=== PATIENT | male | born 1950 | race Caucasian/White ===

== ENCOUNTER 2021-01-03 20:32 | Emergency (ER) | payer MEDICARE ==
[2021-01-03] MEDS ORDERED: LEVOPHED 4 MG/4 ML 4,000 MCG in Dextrose 5%/Water IV Soln. 500 ML 500 ML IV ONE (20:33)
[2021-01-03] MEDS ORDERED: Zemuron 100 MG/10 ML IV ONE (20:33)
--- NOTE | 2021-01-03 20:42 | ERPHSYRPT ---
- History of Present Illness Time Seen by Provider: 01/03/21 20:42 Source: EMS Exam Limitations: clinical condition Physician History: Is a 70-year-old gentleman who has a history of hypertension, coronary artery bypass grafting coronary artery disease on Coumadin, hypertension and has been treated for multiple myeloma by Dr. Menendez at [facility] in [facility]. Today, just prior to arrival to the emergency department, patient stood up and fell and hit his head. He had a change in his mental status. He was agitated upon arrival of EMS and during transport here to the emergency department. Per son's report, the patient's most recent INR was over 4.0. The dosage was dropped in half from 2 mg to 1 mg. Patient arrives somewhat combative and agitated. He has low oxygen level. Occurred: just prior to arrival Severity: severe Method of Injury: fell Loss of Consciousness: other (Altered mental status and agitated) Associated Symptoms: denies symptoms Allergies/Adverse Reactions: No Known Drug Allergies Allergy (Verified 09/10/12 08:19) Home Medications: Aspirin [Aspir 81] 81 mg PO AC 09/09/12 [History] Metoprolol Tartrate 50 mg [Lopressor 50 MG] 50 mg PO BID 09/09/12 [History] Rosuvastatin Calcium [Crestor] 20 mg PO DAILY 09/09/12 [History] lisinopriL [Prinivil] 20 mg PO QAM 09/09/12 [History] Hydrocodone Bit/Acetaminophen [Hydrocodon-Acetaminoph 7.5-500] Q6H PRN PRN 09/10/12 [History] Travel Risk - International Travel Have you traveled outside of the country in past 3 weeks: No - Coronavirus Screening Are you exhibiting any of the following symptoms?: No Close contact with a COVID-19 positive Pt in past 14-21 Days: No - Review of Systems Constitutional: Other (Agitated altered mental status) Eyes: Other (Unable to assess) Ears, Nose, & Throat: No Symptoms, Other (Unable to assess) Respiratory: No Symptoms, Other (Unable to assess) Cardiac: Other (Able to assess) Abdominal/Gastrointestinal: Other (To assess) Genitourinary Symptoms: Other (Unable to assess) Musculoskeletal: Other (Unable to assess) Skin: Other Neurological: Other (Unable to assess) Psychological: Other (We will to assess) Endocrine: Other (Unable to assess) Hematologic/Lymphatic: Other (Multiple myeloma) Immunological/Allergic: No Symptoms All Other Systems: Reviewed and Negative - Past Medical History Neurological History: Migraines ENT History: No Pertinent History Cardiac History: High Cholesterol, Hypertension, Other Respiratory History: Other Endocrine Medical History: No Pertinent History Musculoskeletal History: Osteoarthritis GI Medical History: No Pertinent History History: No Pertinent History Psycho-Social History: No Pertinent History Male Reproductive Disorders: No Pertinent History Other Medical History: CABG x4 08/22/17, SOB since open heart - Past Surgical History Past Surgical History: Yes Neuro Surgical History: No Pertinent History Cardiac: Cardiac Catheterization Respiratory: No Pertinent History Gastrointestinal: Appendectomy, Cholecystectomy Genitourinary: No Pertinent History Musculoskeletal: No Pertinent History Male Surgical History: No Pertinent History - Social History Smoking Status: Former smoker Exposure to second hand smoke: Yes Drug Use: none - Nursing Vital Signs Nursing Vital Signs: Initial Vital Signs Pulse Rate 101 H 01/03/21 20:35 Respiratory Rate 12 01/03/21 20:35 Blood Pressure 40/0 01/03/21 20:35 O2 Sat by Pulse Oximetry 82 L 01/03/21 20:35 Pain Scale Pain Intensity 0 - [place] Coma Score Best Verbal Response ([place]): (1) no verbal response Best Motor Response (Sammi): (4) withdraws to pain - Physical Exam General Appearance: severe distress, other (3rd mental status agitated) Head Injury: no evidence of injury Eye Exam: bilateral eye: other (Right pupil appears slightly larger than the lef t side. The left side appears more constricted and the right side appears more normal in size) ENT Exam: other (Ko[place] dry), No hemotympanum Neck Exam: supple, trachea midline, full range of motion, normal alignment, normal inspection Cardiovascular/Respiratory Exam: rhonchi (Bilaterally), No paradoxical movements, No accessory muscle use Gastrointestinal/Abdominal Exam: soft, non tender, no distention, no mass, no guarding, no ecchymosis, no organomegaly Rectal Exam: not done Back Exam: normal inspection, No vertebral tenderness Extremity Exam: normal range of motion Mental Status Exam: other (Agitated and altered mental status patient does not follow commands) 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 Care 01/03/21 20:43 Active EKG-ER Only STAT Care 01/03/21 20:42 Active Juárez [Catheter-Wilson Juárez] STAT Care 01/03/21 20:44 Active IV Insertion STAT Care 01/03/21 20:42 Active IV Insertion-2nd Peripheral STAT Care 01/03/21 21:04 Active Pulse Oximetry (ED) STAT Care 01/03/21 20:42 Active CERVICAL SPINE WO CONTRAST [CT] Stat Exams 01/03/21 20:44 Taken CHEST 1 VIEW (PORTABLE) Stat Exams 01/03/21 21:00 Taken HEAD WITHOUT CONTRAST [CT] Stat Exams 01/03/21 20:43 Taken ABG [ARTERIAL BLOOD GASES] Urgent Lab 01/03/21 21:06 Completed ABG [ARTERIAL BLOOD GASES] Urgent Lab 01/03/21 22:18 Completed CBC W DIFF Stat Lab 01/03/21 20:45 Completed CMP Stat Lab 01/03/21 20:45 Completed CULTURE,URINE Stat Lab 01/03/21 21:34 Received D-DIMER QUANTITATIVE Stat Lab 01/03/21 20:45 Completed Lactic Acid Urgent Lab 01/03/21 21:06 Completed Lactic Acid Urgent Lab 01/03/21 22:18 Completed Manual Differential NC Stat Lab 01/03/21 20:45 Completed NT PRO BNP Stat Lab 01/03/21 20:45 Completed PROTIME WITH INR Stat Lab 01/03/21 20:45 Completed TROPONIN Q3H Lab 01/03/21 20:45 Completed TROPONIN Q3H Lab 01/03/21 23:45 Ordered TROPONIN Q3H Lab 01/04/21 02:45 Ordered TROPONIN Q3H Lab 01/04/21 05:45 Ordered TROPONIN Q3H Lab 01/04/21 08:45 Ordered UA W/RFX UR CULTURE Stat Lab 01/03/21 21:34 Completed Urine Triage Profile Stat Lab 01/03/21 21:02 Completed Intubate Patient STAT RT 01/03/21 21:27 Active Intubation [Ventilator Management] STAT RT 01/03/21 21:27 Active Medication Summary Generic Name Dose Route Start Last Admin Trade Name Julisa PRN Reason Stop Dose Admin Vancomycin HCl 1 gm in 200 mls @ 125 mls/hr 01/03/21 23:13 Vancomycin 1 Gram/200 Ml Bag IV 01/04/21 00:48 STAT ONE Discontinued Medications Generic Name Dose Route Start Last Admin Trade Name Julisa PRN Reason Stop Dose Admin Sodium Chloride Confirm 01/03/21 21:10 Sodium Chloride 0.9% 1000 Ml Administered 01/03/21 21:11 Dose 1,000 mls @ ud .ROUTE .STK-MED ONE Meropenem 1 g/ Sodium Chloride 100 mls @ 200 mls/hr 01/03/21 21:42 01/03/21 22:01 IV 01/03/21 22:11 200 mls/hr STAT ONE Administration Sodium Chloride Confirm 01/03/21 21:57 Sodium Chloride 100ml Mini-Bag Plus Administered 01/03/21 21:58 Dose 100 mls @ ud IV .STK-MED ONE Sodium Chloride Confirm 01/03/21 21:57 Sodium Chloride 0.9% 1000 Ml Administered 01/03/21 21:58 Dose 1,000 mls @ ud .ROUTE .STK-MED ONE Sodium Chloride Confirm 01/03/21 22:22 Sodium Chloride 0.9% 250 Ml Administered 01/03/21 22:23 Dose 250 mls @ ud IV .STK-MED ONE Sodium Chloride Confirm 01/03/21 23:03 Sodium Chloride 0.9% 1000 Ml Administered 01/03/21 23:04 Dose 1,000 mls @ ud .ROUTE .STK-MED ONE Meropenem Confirm 01/03/21 21:57 Merrem 1 Gm Administered 01/03/21 21:58 Dose 1 g IV .STK-MED ONE Midazolam HCl Confirm 01/03/21 22:22 Versed 50 Mg/ 10 Ml Mdv Administered 01/03/21 22:23 Dose 50 mg .ROUTE .STK-MED ONE Phytonadione 10 mg 01/03/21 21:40 01/03/21 22:01 Vitamin K 10 Mg/Ml IM 01/03/21 21:41 10 mg STAT ONE Administration Phytonadione Confirm 01/03/21 21:57 Vitamin K 10 Mg/Ml Administered 01/03/21 21:58 Dose 10 mg .ROUTE .STK-MED ONE Lab/Rad Data: Laboratory Result Diagrams 01/03/21 20:45 01/03/21 20:45 Laboratory Results 01/03/21 01/03/21 01/03/21 Range/Units 22:18 22:10 21:34 WBC (4.0-10.5) K/mm3 RBC (4.1-5.6) M/mm3 Hgb (12.5-18.0) gm/dl Hct (42-50) % MCV (78-100) fl MCH (26-32) pg MCHC (32-36) g/dl RDW (11.5-14.0) % Plt Count (150-450) K/mm3 MPV (7.5-11.0) fl Segmented Neutrophils (36.-66.) % Band Neutrophils (0.0-2.0) % Lymphocytes (Manual) (24-44) % Hypochromia Platelet Estimate (NORMAL) RBC Morphology Poikilocytosis Anisocytosis Scobey Cells PT (8.83-12.87) SECONDS INR (0.8-3.0) D-Dimer (215-500) ng/mL Puncture Site fem pCO2 25 L (35-45) mmHg pO2 193 H* (75-100) mmHg Base Excess -7.1 L (-2.0-2.0) O2 Saturation 97.6 (94-100) g/dF ABG pH 7.41 (7.35-7.45) ABG HCO3 15.8 L* (22-28) ABG O2 Sat (Measured) 99.5 (95-100) % Kwaku Test na A-a Gradient 489 a/A Ratio 0.28 Hemoglobin 7.7 L* Carboxyhemoglobin 0.6 (0.0-6.9) % THgb Methemoglobin 1.2 L (1.4-1.5) % Temperature 37.0 C POC O2 Flow Rate 100 % Vent Mode A/C Tidal Volume 600 cc PEEP 5.0 cmH2O Sodium (137-145) mmol/L Potassium 2.4 L* (3.5-5.1) mmol/L Chloride (98-107) mmol/L Carbon Dioxide (22-30) mmol/L Anion Gap (5-15) MEQ/L BUN (9-20) mg/dL Creatinine (0.66-1.25) mg/dL Estimated GFR ML/MIN Glucose (74-106) mg/dL Lactic Acid 5.2 H (0.4-2.0) Calcium (8.4-10.2) mg/dL Total Bilirubin (0.2-1.3) mg/dL AST (17-59) U/L ALT (0-50) U/L Alkaline Phosphatase (38-126) U/L Troponin I (0.000-0.034) ng/mL NT-Pro-B Natriuret Pep (0-900) pg/mL Serum Total Protein (6.3-8.2) g/dL Albumin (3.5-5.0) g/dL Urine Color MESSI (YELLOW) Urine Appearance CLOUDY (CLEAR) Urine pH 5.0 (5-6) Ur Specific Seale 1.020 (1.005-1.025) Urine Protein 100 (Negative) Urine Ketones NEGATIVE (NEGATIVE) Urine Blood SMALL (0-5) Bipin/ul Urine Nitrite NEGATIVE (NEGATIVE) Urine Bilirubin SMALL (NEGATIVE) Urine Urobilinogen 4 (0-1) mg/dL Ur Leukocyte Esterase MODERATE (NEGATIVE) Urine WBC (Auto) >100 (0-5) /HPF Urine RBC (Auto) 6-10 (0-2) /HPF U Hyaline Cast (Auto) 3-5 (0-2) /LPF U Epithel Cells (Auto) NONE (FEW) /HPF Urine Bacteria (Auto) MODERATE (NEGATIVE) /HPF Urine Mucus (Auto) SLIGHT (NEGATIVE) /HPF Urine Culture Reflexed ORDERED SEPARATELY (NO) Urine Glucose NEGATIVE (NEGATIVE) mg/dL Urine Opiates Level (NEGATIVE) Ur Methadone (NEGATIVE) Urine Barbiturates (NEGATIVE) Ur Phencyclidine (PCP) (NEGATIVE) Urine Amphetamine (NEGATIVE) U Benzodiazepine Level (NEGATIVE) Urine Cocaine (NEGATIVE) Urine Marijuana (THC) (NEGATIVE) ABO Group A Rh Factor POSITIVE Antibody Screen POSITIVE (NEGATIVE) Crossmatch Pending 01/03/21 01/03/21 01/03/21 Range/Units 21:06 21:02 20:45 WBC (4.0-10.5) K/mm3 RBC (4.1-5.6) M/mm3 Hgb (12.5-18.0) gm/dl Hct (42-50) % MCV (78-100) fl MCH (26-32) pg MCHC (32-36) g/dl RDW (11.5-14.0) % Plt Count (150-450) K/mm3 MPV (7.5-11.0) fl Segmented Neutrophils (36.-66.) % Band Neutrophils (0.0-2.0) % Lymphocytes (Manual) (24-44) % Hypochromia Platelet Estimate (NORMAL) RBC Morphology Poikilocytosis Anisocytosis Art Cells PT (8.83-12.87) SECONDS INR (0.8-3.0) D-Dimer (215-500) ng/mL Puncture Site fem pCO2 36 (35-45) mmHg pO2 117 H (75-100) mmHg Base Excess -14.1 L (-2.0-2.0) O2 Saturation 97.0 (94-100) g/dF ABG pH 7.18 L* (7.35-7.45) ABG HCO3 13.4 L* (22-28) ABG O2 Sat (Measured) 98.8 (95-100) % Kwaku Test na A-a Gradient 551 a/A Ratio 0.18 Hemoglobin 7.1 L* Carboxyhemoglobin 0.9 (0.0-6.9) % THgb Methemoglobin 0.9 L (1.4-1.5) % Temperature 37.0 C POC O2 Flow Rate 100 % Vent Mode A/C Tidal Volume 600 cc PEEP 5.0 cmH2O Sodium (137-145) mmol/L Potassium 2.4 L* (3.5-5.1) mmol/L Chloride (98-107) mmol/L Carbon Dioxide (22-30) mmol/L Anion Gap (5-15) MEQ/L BUN (9-20) mg/dL Creatinine (0.66-1.25) mg/dL Estimated GFR ML/MIN Glucose (74-106) mg/dL Lactic Acid 10.1 H (0.4-2.0) Calcium (8.4-10.2) mg/dL Total Bilirubin (0.2-1.3) mg/dL AST (17-59) U/L ALT (0-50) U/L Alkaline Phosphatase (38-126) U/L Troponin I 0.038 H* (0.000-0.034) ng/mL NT-Pro-B Natriuret Pep (0-900) pg/mL Serum Total Protein (6.3-8.2) g/dL Albumin (3.5-5.0) g/dL Urine Color (YELLOW) Urine Appearance (CLEAR) Urine pH (5-6) Ur Specific Seale (1.005-1.025) Urine Protein (Negative) Urine Ketones (NEGATIVE) Urine Blood (0-5) Bipin/ul Urine Nitrite (NEGATIVE) Urine Bilirubin (NEGATIVE) Urine Urobilinogen (0-1) mg/dL Ur Leukocyte Esterase (NEGATIVE) Urine WBC (Auto) (0-5) /HPF Urine RBC (Auto) (0-2) /HPF U Hyaline Cast (Auto) (0-2) /LPF U Epithel Cells (Auto) (FEW) /HPF Urine Bacteria (Auto) (NEGATIVE) /HPF Urine Mucus (Auto) (NEGATIVE) /HPF Urine Culture Reflexed (NO) Urine Glucose (NEGATIVE) mg/dL Urine Opiates Level NEGATIVE (NEGATIVE) Ur Methadone NEGATIVE (NEGATIVE) Urine Barbiturates NEGATIVE (NEGATIVE) Ur Phencyclidine (PCP) NEGATIVE (NEGATIVE) Urine Amphetamine NEGATIVE (NEGATIVE) U Benzodiazepine Level NEGATIVE (NEGATIVE) Urine Cocaine NEGATIVE (NEGATIVE) Urine Marijuana (THC) NEGATIVE (NEGATIVE) ABO Group Rh Factor Antibody Screen (NEGATIVE) Crossmatch 01/03/21 01/03/21 01/03/21 Range/Units 20:45 20:45 20:45 WBC 16.1 H (4.0-10.5) K/mm3 RBC 2.66 L (4.1-5.6) M/mm3 Hgb 7.5 L (12.5-18.0) gm/dl Hct 25.8 L (42-50) % MCV 97.0 (78-100) fl MCH 28.2 (26-32) pg MCHC 29.1 L (32-36) g/dl RDW 18.2 H (11.5-14.0) % Plt Count 466 H (150-450) K/mm3 MPV 9.2 (7.5-11.0) fl Segmented Neutrophils 94 H (36.-66.) % Band Neutrophils 1 (0.0-2.0) % Lymphocytes (Manual) 5 L (24-44) % Hypochromia 1+ Platelet Estimate NORMAL (NORMAL) RBC Morphology ABNORMAL Poikilocytosis 1+ Anisocytosis 1+ Scobey Cells 1+ PT 65.1 H (8.83-12.87) SECONDS INR 5.75 H* (0.8-3.0) D-Dimer 3149 H* (215-500) ng/mL Puncture Site pCO2 (35-45) mmHg pO2 (75-100) mmHg Base Excess (-2.0-2.0) O2 Saturation (94-100) g/dF ABG pH (7.35-7.45) ABG HCO3 (22-28) ABG O2 Sat (Measured) (95-100) % Kwaku Test A-a Gradient a/A Ratio Hemoglobin Carboxyhemoglobin (0.0-6.9) % THgb Methemoglobin (1.4-1.5) % Temperature C POC O2 Flow Rate % Vent Mode Tidal Volume cc PEEP cmH2O Sodium 134 L (137-145) mmol/L Potassium 3.4 L (3.5-5.1) mmol/L Chloride 100 (98-107) mmol/L Carbon Dioxide 10 L* (22-30) mmol/L Anion Gap 28.0 H (5-15) MEQ/L BUN 20 (9-20) mg/dL Creatinine 1.31 H (0.66-1.25) mg/dL Estimated GFR 57.8 ML/MIN Glucose 315 H (74-106) mg/dL Lactic Acid (0.4-2.0) Calcium 6.6 L (8.4-10.2) mg/dL Total Bilirubin 0.90 (0.2-1.3) mg/dL AST 27 (17-59) U/L ALT 23 (0-50) U/L Alkaline Phosphatase 166 H (38-126) U/L Troponin I (0.000-0.034) ng/mL NT-Pro-B Natriuret Pep 1330 H (0-900) pg/mL Serum Total Protein 4.3 L (6.3-8.2) g/dL Albumin 2.4 L (3.5-5.0) g/dL Urine Color (YELLOW) Urine Appearance (CLEAR) Urine pH (5-6) Ur Specific Seale (1.005-1.025) Urine Protein (Negative) Urine Ketones (NEGATIVE) Urine Blood (0-5) Bipin/ul Urine Nitrite (NEGATIVE) Urine Bilirubin (NEGATIVE) Urine Urobilinogen (0-1) mg/dL Ur Leukocyte Esterase (NEGATIVE) Urine WBC (Auto) (0-5) /HPF Urine RBC (Auto) (0-2) /HPF U Hyaline Cast (Auto) (0-2) /LPF U Epithel Cells (Auto) (FEW) /HPF Urine Bacteria (Auto) (NEGATIVE) /HPF Urine Mucus (Auto) (NEGATIVE) /HPF Urine Culture Reflexed (NO) Urine Glucose (NEGATIVE) mg/dL Urine Opiates Level (NEGATIVE) Ur Methadone (NEGATIVE) Urine Barbiturates (NEGATIVE) Ur Phencyclidine (PCP) (NEGATIVE) Urine Amphetamine (NEGATIVE) U Benzodiazepine Level (NEGATIVE) Urine Cocaine (NEGATIVE) Urine Marijuana (THC) (NEGATIVE) ABO Group Rh Factor Antibody Screen (NEGATIVE) Crossmatch - Progress Progress: improved, re-examined Progress Note: 01/03/21 23:16 Chest x-ray post orotracheal intubation shows the ET tube within the trachea above the tha. There is left lung fluid present. No definite infiltrate present. CAT scan of the head shows no acute intracranial hemorrhage. Medical decision making: This patient appears to be septic. The likely source is urine. Patient is hypoxic, hypotensive and septic. I spoke with Dr. Stevens, the hospitalist at [facility]. I reviewed the patient history, condition, work-up results with him. Dr. Stevens wanted me to add vancomycin 1 g intravenous. I informed Dr. Stevens that the patient is on a Levophed drip, Versed drip and has received 3 L of normal saline and is on the fourth liter of normal saline at this time. Dr. Stevens accepts the patient in transfer. - Departure Departure Disposition: Transfer Clinical Impression: Altered mental status, Elevated INR, Hypoxia, Leukocytosis, Hypotension, Elevated troponin, Elevated d-dimer, Sepsis Condition: Critical Critical Care Time: Yes Critical Care Time(excluding separately billable procedures): Critical 75-104 mins Referrals: JUAN LUIS GRIMES MD [Primary Care Provider] -
[2021-01-03 20:52] LABS: Hematocrit 25.8 % (42-50); Hemoglobin 7.5 gm/dl (12.5-18.0); Mean Corpuscular Hemoglobin 28.2 pg (26-32); Mean Corpuscular Hgb Concent. 29.1 g/dl (32-36); Mean Platelet Volume 9.2 fl (7.5-11.0); Platelet Count 466 K/mm3 (150-450); Red Blood Count 2.66 M/mm3 (4.1-5.6); Red Cell Distribution Width 18.2 % (11.5-14.0); White Blood Count 16.1 K/mm3 (4.0-10.5)
[2021-01-03 21:05] LABS: BAND 1 % (0.0-2.0); Lymphocytes 5 % (24-44); Neutrophils 94 % (36.-66.); Total Cells Counted 100
[2021-01-03 21:07] LABS: ALBUMIN 2.4 g/dL (3.5-5.0); BILIRUBIN,TOTAL 0.9 mg/dL (0.2-1.3); Calcium 6.6 mg/dL (8.4-10.2); Creatinine 1 1.31 mg/dL (0.66-1.25); EST GLOMERULAR FILTRATION RATE 57.8 ML/MIN; Potassium 3.4 mmol/L (3.5-5.1); Total Protein 4.3 g/dL (6.3-8.2)
[2021-01-03] MEDS ORDERED: Sodium Chloride 0.9% 1000 ML 1,000 ML ONE ×3 (21:10→23:03)
[2021-01-03 21:23] LABS: ANISOCYTOSIS 1+; Hypochromia 1+; Poikilocytosis 1+
[2021-01-03 21:24] LABS: Platelet Estimate NORMAL (NORMAL)
[2021-01-03 21:24] LABS: A-aADO2 551; ARTERIAL BLD GAS O2 SATURATION 98.8 % (95-100); ARTERIAL BLD GAS TIDAL VOLUME 600 cc; ARTERIAL BLOOD GAS BASE EXCESS -14.1 (-2.0-2.0); ARTERIAL BLOOD GAS FIO2 100 %; ARTERIAL BLOOD GAS PCO2 36 mmHg (35-45); ARTERIAL BLOOD GAS PO2 117 mmHg (75-100); ARTERIAL BLOOD GAS VENT MODE A/C; ARTERIAL BLOOD GAS pH 7.18 (7.35-7.45); CARBOXYHEMOGLOBIN 0.9 % THgb (0.0-6.9); HCO3- 13.4 (22-28); Lactic Acid 10.1 (0.4-2.0); Methhemoglobin 0.9 % (1.4-1.5)
[2021-01-03 21:25] LABS: Burr Cells 1+
[2021-01-03 21:25] LABS: ABG HEMOGLOBIN 7.1; ABG POTASSIUM 2.4 (3.5-5.1)
[2021-01-03 21:31] LABS: PROTIME 65.1 SECONDS (8.83-12.87)
[2021-01-03] MEDS ORDERED: Vitamin K 10 MG/ML IM ONE (21:40)
[2021-01-03 21:41] LABS: INR 5.75 (0.8-3.0)
[2021-01-03] MEDS ORDERED: Merrem 1 GM 1 G in Sodium Chloride 100ML MINI-BAG PLUS 100 ML IV ONE (21:42)
[2021-01-03 21:49] LABS: Appearance CLOUDY (CLEAR); Bacteria MODERATE /HPF (NEGATIVE); Bilirubin SMALL (NEGATIVE); Blood SMALL Ery/ul (0-5); Glucose NEGATIVE (NEGATIVE); Ketones NEGATIVE (NEGATIVE); Leukocyte Esterase MODERATE (NEGATIVE); Mucus SLIGHT /HPF (NEGATIVE); Nitrite NEGATIVE (NEGATIVE); Protein,Urine Dip 100 (Negative); Urobilinogen 4 mg/dL (0-1); WBC >100 /HPF (0-5)
[2021-01-03 21:55] LABS: Amphetamine,Urine NEGATIVE (NEGATIVE); Barbiturate,Urine NEGATIVE (NEGATIVE); Benzodiazepine,Urine NEGATIVE (NEGATIVE); Cocaine,Urine NEGATIVE (NEGATIVE); Methadone,Urine NEGATIVE (NEGATIVE); Opiate,Urine NEGATIVE (NEGATIVE); THC,Urine NEGATIVE (NEGATIVE)
[2021-01-03] MEDS ORDERED: Vitamin K 10 MG/ML ONE (21:57)
[2021-01-03] MEDS ORDERED: Merrem 1 GM IV ONE (21:57)
[2021-01-03] MEDS ORDERED: Sodium Chloride 100ML MINI-BAG PLUS 100 ML IV ONE (21:57)
[2021-01-03 22:03] LABS: PCP,Urine NEGATIVE (NEGATIVE)
[2021-01-03 22:19] LABS: A-aADO2 489; ARTERIAL BLD GAS O2 SATURATION 99.5 % (95-100); ARTERIAL BLD GAS TIDAL VOLUME 600 cc; ARTERIAL BLOOD GAS BASE EXCESS -7.1 (-2.0-2.0); ARTERIAL BLOOD GAS FIO2 100 %; ARTERIAL BLOOD GAS PCO2 25 mmHg (35-45); ARTERIAL BLOOD GAS PO2 193 mmHg (75-100); ARTERIAL BLOOD GAS VENT MODE A/C; ARTERIAL BLOOD GAS pH 7.41 (7.35-7.45); CARBOXYHEMOGLOBIN 0.6 % THgb (0.0-6.9); HCO3- 15.8 (22-28); HGB O2 SAT 97.6 g/dF (94-100); Lactic Acid 5.2 (0.4-2.0); Methhemoglobin 1.2 % (1.4-1.5)
[2021-01-03 22:20] LABS: ABG HEMOGLOBIN 7.7; ABG POTASSIUM 2.4 (3.5-5.1)
[2021-01-03] MEDS ORDERED: Sodium Chloride 0.9% 250 ML 250 ML IV ONE (22:22)
[2021-01-03] MEDS ORDERED: Versed 50 MG/ 10 Ml MDV ONE (22:22)
[2021-01-03 23:03] VITALS: O2SAT 99
[2021-01-03 23:09] LABS: ABO TYPING A; RH TYPING POSITIVE
[2021-01-03] MEDS ORDERED: VANCOMYCIN 1 GRAM/200 ML BAG 1 GM/200 ML PIGGYBACK IV ONE ×2 (23:13→23:16)
[2021-01-03 23:55] LABS: Antibody Screen POSITIVE (NEGATIVE)
[2021-01-04 00:01] VITALS: BP 88/58; PULSE 76
--- NOTE | 2021-01-04 08:48 | XRAY ---
Indication: Head injury with loss of consciousness. Acute mental status change. Coumadin therapy. Multiple contiguous axial images obtained through the head without contrast. Comparison: None Age-appropriate global atrophy. No acute intracranial hemorrhage, abnormal extra-axial fluid collection, or mass effect. Fourth ventricle is midline without hydrocephalus. Sanchez-white matter differentiation preserved. Bony calvarium intact with multiple tiny lytic lesions. Visualized paranasal sinuses and mastoid air cells are clear. Impression: 1. No acute intracranial abnormalities. 2. Multiple tiny bony calvarium lytic lesions. Rule out osteoporosis, multiple myeloma, or metastasis.
--- NOTE | 2021-01-04 08:52 | XRAY ---
Indication: Head injury with loss of consciousness. Acute mental status change. Coumadin therapy. Multiple contiguous axial images obtained through the cervical spine. Sagittal and coronal reformatted images obtained. Comparison: None Osseous structures are demineralized. Visualized cervical thoracic segments, clavicles, and scapula demonstrates numerous tiny lytic lesions either osteoporosis versus multiple myeloma versus osteolytic metastasis. Axial images negative for acute fracture or spinal canal stenosis. There is mild C3-C4 degenerative endplate spurring and mild multilevel bilateral generative facet hypertrophy. Sagittal and coronal reformatted images demonstrates normal alignment with C3-C4 disc space loss. Superior endplate of T1 demonstrate mild concave deformity favoring endplate fracture of uncertain chronicity. No other compression fracture, subluxation, or jumped facet. Normal appearing craniocervical junction. Visualized noncontrasted soft tissues demonstrates moderate bilateral carotid calcifications. Endotracheal tube in situ with the tip not included in the [id number]. Lung apices demonstrates consolidating opacities versus effusion left greater than right. Impression: 1. T1 superior endplate fracture of uncertain chronicity. 2. Multiple bony lytic lesions. Rule out osteoporosis, multiple myeloma, or metastasis. 3. Mild multilevel degenerative changes. 4. Incidental right apical consolidating opacities versus effusions.
--- NOTE | 2021-01-04 09:00 | XRAY ---
Indication: Tube placement. Comparison: August 27, 2012. Portable chest underinflated with new endotracheal tube tip 3 cm above the tha. New cardiomegaly with CABG surgery and new moderate left effusion. Right costophrenic angle not included in the [id number]. Bony thorax demonstrates osteopenia and new left lateral 6-8 rib fractures. 6th rib fracture is mildly displaced/angulated. Impression: 1. Endotracheal tube tip in good position. 2. New left 6-8 with fractures with hemothorax. 3. New cardiomegaly with CABG surgery. Comment: Rib fractures not reported by interpreting ER clinician. Telephone report was given to Dr. Groves in the ER at 0855 hours on January 04, 2021.
== END 2021-01-04 00:02 | disposition short-term general hospital (02) ==
LOC: ED 20:32
DX: R41.82 Altered mental status, unspecified (principal); R79.1 Abnormal coagulation profile; R09.02 Hypoxemia; D72.829 Elevated white blood cell count, unspecified; I95.9 Hypotension, unspecified; R77.8 Other specified abnormalities of plasma proteins; I10 Essential (primary) hypertension; I25.810 Atherosclerosis of coronary artery bypass graft(s) without angina pectoris; Z79.899 Other long term (current) drug therapy
CPT/HCPCS: 31500; 36000; 36415; 36600; 51702; 70450; 71045; 72125; 80053; 80307; 81001; 82375; 82803; 83605; 83880; 84484; 85025; 85379; 85610; 86850; 86900; 86901; 87040; 87077; 87086; 87186; 93005; 93041; 94002; 94760; 94770; 94799; 96365; 96372; 99285; 99291; 99292; J2250; J3430; J3370